=== PATIENT | male | born 1975 | race Hispanic/Latino ===

== ENCOUNTER → 2020-11-10 | Outpatient (CLI) | payer OTHER | END | disposition home or self-care (01) | LOC: RAH 11:22 | PROVIDERS: ATTEND Internal Medicine | DX: M06.4 Inflammatory polyarthropathy (principal); M24.89 Other specific joint derangement of other specified joint, not elsewhere classified | CPT/HCPCS: 72200 ==

== ENCOUNTER 2022-12-16 14:16 | Emergency (ER) | payer OTHER ==
[~2022-12-16] VITALS: Ht 165.1 cm; Wt 132.4 kg
[2022-12-16 15:01] LABS: BASOPHILS % (AUTO) 0.6 % (0.0-5.0); EOSINOPHILS % (AUTO) 1.6 % (0.0-8.0); HEMATOCRIT 40.9 % (42-54); LYMPHOCYTES % (AUTO) 17.7 % (21.0-51.0); MEAN CORPUSCULAR HEMOGLOBIN 31.5 pg (27.0-33.0); MEAN CORPUSCULAR HGB CONC 34.7 g/dL (32.0-36.0); MEAN CORPUSCULAR VOLUME 90.7 fL (79-99); MONOCYTES % (AUTO) 6.1 % (3.0-13.0); NEUTROPHILS % (AUTO) 73.4 % (40.0-77.0); PLATELET COUNT (AUTO) 344 K/uL (130-400); RED BLOOD CELL COUNT(AUTO) 4.51 MIL/uL (4.50-6.20); RED CELL DISTRIBUTION WIDTH 11.9 % (11.0-15.5); WHITE BLOOD COUNT (AUTO) 14.1 K/uL (4.8-10.8)
[2022-12-16 15:16] LABS: POTASSIUM 3.3 mmol/L (3.5-5.1)
[2022-12-16 15:21] LABS: ALBUMIN 3.8 g/dL (3.5-5.0); TOTAL PROTEIN, SERUM 8.2 g/dL (6.0-8.3)
[2022-12-16 15:28] LABS: ABG OXYGEN SATURATION 29.7 % (95.0-99.0); BASE EXCESS,VENOUS BLOOD GAS -0.6 (-2.0-3.0); PCO2,VENOUS BLOOD GAS 45 (35-48); PH,VENOUS BLOOD GAS 7.366 (7.350-7.450)
[2022-12-16] MEDS ORDERED: 0.9%NACL 50ML IV SCH (15:30)
[2022-12-16] MEDS ORDERED: ONDANSETRON 4MG INJ IVP ONE (15:30)
[2022-12-16] MEDS ORDERED: 0.9%NACL 1000ML 2,000 ML IV ONE (15:30)
[2022-12-16] MEDS ORDERED: ZOSYN 3.375GM +NS 50ML IVPB SCH (15:30)
[2022-12-16] MEDS ORDERED: IOHEXOL-350 75 ML VIAL IV ONE (15:32)
[2022-12-16 16:32] LABS: APPEARANCE,URINE CLEAR (CLEAR); BILIRUBIN,URINE NEGATIVE (NEGATIVE); COLOR,URINE LIGHT-YELLOW (YELLOW); GLUCOSE, URINE (UA) NEGATIVE (NEGATIVE); KETONES,URINE 40 mg/dL (NEGATIVE); LEUKOCYTE ESTERASE ,URINE NEGATIVE Leu/uL (NEGATIVE); NITRATE,URINE NEGATIVE (NEGATIVE); PROTEIN,URINE 10 mg/dL (NEGATIVE); UROBILINOGEN,URINE 0.2 mg/dL (0.2-1.0)
[2022-12-16 16:35] LABS: BACTERIA,URINE RARE /HPF (None Seen); MUCUS,URINE RARE LPF (None Seen); RBC,URINE 0-1 /HPF (0-1)
[2022-12-16] MEDS ORDERED: ERGO500093 PO (17:56)
[2022-12-16] MEDS ORDERED: LISI20TA24 PO (17:56)
[2022-12-16] MEDS ORDERED: ONDA4TAB10 PO (17:56)
[2022-12-16] MEDS ORDERED: AMLO-257 PO (17:56)
[2022-12-16] MEDS ORDERED: CIPR500T10 PO (17:56)
[2022-12-16] MEDS ORDERED: ALBU90AE2 IH (17:56)
[2022-12-16] MEDS ORDERED: ASCO500T20 PO (17:56)
[2022-12-16] MEDS ORDERED: METF-527 PO (17:56)
[2022-12-16 19:05] VITALS: BP 131/71
== END 2022-12-16 19:26 | disposition home or self-care (01) ==
LOC: EDH 14:16
DX: E86.0 Dehydration (principal); R10.9 Unspecified abdominal pain; I10 Essential (primary) hypertension; E11.9 Type 2 diabetes mellitus without complications; Z20.822 Contact with and (suspected) exposure to COVID-19; Z79.84 Long term (current) use of oral hypoglycemic drugs; Z79.899 Other long term (current) drug therapy
CPT/HCPCS: 99285; 74177; 96365; 71045; 87635; 96375; 82947; 80053; 82803; 85025; 87040 ×2; 87804 ×2; 81001; 36415; 36600; 82435; 84132; 84295; 83605 ×3; C9803; J7030; J2405; J2543; Q9967